=== PATIENT | female | born 1965 | race Caucasian/White ===

== ENCOUNTER 2018-10-15 18:24 | Emergency (ER) | payer OTHER ==
[~2018-10-15] VITALS: Ht 162.6 cm; Wt 54.0 kg
[2018-10-15] MEDS ORDERED: MOBIC7.5 MG PO (18:37)
[2018-10-15] MEDS ORDERED: CARISOPRODOL 3350 MG PO (18:37)
[2018-10-15] MEDS ORDERED: CIPRO500 MG PO (18:38)
[2018-10-15 19:53] LABS: URINE BILIRUBIN NEGATIVE (Negative); URINE BLOOD NEGATIVE (Negative); URINE CLARITY CLEAR; URINE COLOR YELLOW; URINE GLUCOSE-RANDOM NEGATIVE (Negative); URINE KETONES NEGATIVE (Negative); URINE LEUKOCYTES-REFLEX NEGATIVE (Negative); URINE NITRITE-REFLEX NEGATIVE (Negative); URINE PROTEIN NEGATIVE (Negative); URINE UROBILINOGEN 0.2 E.U./dl (0.2-1.0)
[2018-10-15 19:56] LABS: ABSOLUTE BASOPHILS 0.1 thou/uL (0.0-0.2); ABSOLUTE EOSINOPHILS 0.5 thou/uL (0.0-0.7); ABSOLUTE LYMPHOCYTES 3.5 thou/uL (0.8-5.3); ABSOLUTE MONOCYTES 0.6 thou/uL (0.0-1.2); ABSOLUTE NEUTROPHILS 4.3 thou/uL (1.6-8.1); BASOPHILS 0.8 %; EOSINOPHILS 5.5 %; HEMATOCRIT 41.9 % (37.0-47.0); HEMOGLOBIN 14.1 gm/dL (12.0-15.0); LYMPHOCYTES 39.1 %; MCH 31.4 pg (26.0-34.0); MCHC 33.5 g/dL (28.0-37.0); MCV 93.8 fL (80.0-100.0); MONOCYTES 6.8 %; MPV 8.6 fl. (7.2-11.1); NUCLEATED RBCS 0 /100WBC; PLATELET COUNT* 360 thou/uL (150-400); POLYS 47.8 %; RBC 4.47 mil/uL (4.20-5.00); RDW-CV 12.8 % (10.5-14.5)
[2018-10-15 20:01] LABS: ANION GAP 7 mmol/L (7-16); BUN 13 mg/dL (7-18); CALCIUM 9.4 mg/dL (8.5-10.1); CHLORIDE 104 mmol/L (98-107); CO2 30 mmol/L (21-32); CREATININE 0.9 mg/dL (0.6-1.3); GLUCOSE 91 mg/dL (70-99); POTASSIUM 3.5 mmol/L (3.5-5.1); SODIUM 141 mmol/L (136-145)
[2018-10-15 20:10] LABS: ALKALINE PHOSPHATASE 65 U/L (46-116); LIPASE 184 U/L (73-393); SGOT 18 U/L (15-37); SGPT 31 U/L (30-65); TOTAL BILIRUBIN 0.8 mg/dL (<0.1-1.0); TOTAL PROTEIN 7.5 g/dL (6.4-8.2); TROPONIN-I LEVEL <0.06 ng/mL (<0.06)
[2018-10-15 20:58] LABS: ESR (SEDRATE) 6 mm/hr (0-30)
[2018-10-15] MEDS ORDERED: PREDNISONE 10 M10 MG PO (21:42)
[2018-10-15 22:09] VITALS: BP 162/90
--- NOTE | 2018-10-16 17:15 | EKG ---
[place] [address] ELECTROCARDIOGRAM REPORT Name: ROXANNE DOLAN Room: [facility]#: [id number] Admission: 10/15/18 Attend Phys: Discharge: 10/15/18 Date of : 61 Report #: [id number] THIS REPORT FOR: //name// [facility] ED Test Date: 2018-10-15 Test Time: 20:05:05 Pat Name: ROXANNE DOLAN Department: Room: Gender: F Salesperson Household Appliances: [employer] : 1965 Requested By: Sally Brunson Order Number: [id number] Parrish MD: Ar Fleming Measurements Intervals [place] Rate: 70 P: 74 [place]: 167 QRS: 79 QRSD: 80 T: 63 QT: 403 QTc: 435 Interpretive Statements Sinus rhythm Baseline wander in lead(s) V1 No previous ECG available for comparison Electronically Signed On 10-16-2018 17:15:12 CDT by Ar Fleming [email or web address] <ELECTRONICALLY SIGNED> By: Ar Fleming MD, [facility] 10/16/18 1715 04 04 Ar Fleming MD, FACC /EPI
== END 2018-10-15 22:10 | disposition home or self-care (01) ==
LOC: M.ERS 18:24
PROVIDERS: Nurse Practitioner Family
DX: R10.30 Lower abdominal pain, unspecified (principal); R07.89 Other chest pain; R35.0 Frequency of micturition; Z91.018 Allergy to other foods

== ENCOUNTER 2018-11-04 10:51 | Emergency (ER) | payer OTHER ==
[~2018-11-04] VITALS: Ht 162.6 cm; Wt 53.1 kg
[~2018-11-04 10:51] MED LIST: CARISOPRODOL 3350 MG PO; CIPRO500 MG PO; MOBIC7.5 MG PO; PREDNISONE 10 M10 MG PO
[2018-11-04] MEDS ORDERED: MOBIC7.5 MG PO (11:01)
[2018-11-04 11:30] LABS: URINE BILIRUBIN NEGATIVE (Negative); URINE BLOOD NEGATIVE (Negative); URINE CLARITY CLEAR; URINE COLOR YELLOW; URINE GLUCOSE-RANDOM NEGATIVE (Negative); URINE KETONES NEGATIVE (Negative); URINE LEUKOCYTES-REFLEX NEGATIVE (Negative); URINE NITRITE-REFLEX NEGATIVE (Negative); URINE PROTEIN NEGATIVE (Negative); URINE UROBILINOGEN 0.2 E.U./dl (0.2-1.0)
[2018-11-04 12:00] LABS: ABSOLUTE BASOPHILS 0.1 thou/uL (0.0-0.2); ABSOLUTE EOSINOPHILS 0.1 thou/uL (0.0-0.7); ABSOLUTE LYMPHOCYTES 2.2 thou/uL (0.8-5.3); ABSOLUTE MONOCYTES 0.5 thou/uL (0.0-1.2); BASOPHILS 0.7 %; EOSINOPHILS 1.6 %; HEMATOCRIT 38.3 % (37.0-47.0); HEMOGLOBIN 12.9 gm/dL (12.0-15.0); LYMPHOCYTES 27.6 %; MCH 31.8 pg (26.0-34.0); MCHC 33.8 g/dL (28.0-37.0); MCV 94.1 fL (80.0-100.0); MONOCYTES 5.9 %; NUCLEATED RBCS 0 /100WBC; PLATELET COUNT* 336 thou/uL (150-400); POLYS 64.2 %; RBC 4.07 mil/uL (4.20-5.00); RDW-CV 13.7 % (10.5-14.5); WBC 7.8 thou/uL (4.0-11.0)
[2018-11-04 12:13] LABS: CALCIUM 8.9 mg/dL (8.5-10.1); CREATININE 0.8 mg/dL (0.6-1.3); POTASSIUM 3.4 mmol/L (3.5-5.1)
[2018-11-04 12:18] LABS: ALBUMIN 3.6 g/dL (3.4-5.0); TOTAL BILIRUBIN 1.1 mg/dL (<0.1-1.0); TOTAL PROTEIN 6.8 g/dL (6.4-8.2)
[2018-11-04] MEDS ORDERED: CITRATE OF MAG296 ML PO (13:48)
[2018-11-04] MEDS ORDERED: BENTYL 20 MG TA20 M1 PO (13:48)
[2018-11-04 14:10] VITALS: BP 133/84
== END 2018-11-04 14:10 | disposition home or self-care (01) ==
LOC: M.ERS 10:51
PROVIDERS: Nurse Practitioner Family
DX: K59.00 Constipation, unspecified (principal); R10.10 Upper abdominal pain, unspecified; Z91.018 Allergy to other foods